=== PATIENT | female | born 1985 | race Caucasian/White ===

== ENCOUNTER 2022-01-15 05:26 | Inpatient (IN) ==
[2022-01-15] MEDS ORDERED: TRANEXAMIC ACID 1,000 MG in SODIUM CHLORIDE 0.9% 100 ML IV PRN (05:38)
[2022-01-15] MEDS ORDERED: FAMOTIDINE 20 MG/2 ML VIAL IV ONE (05:38)
[2022-01-15] MEDS ORDERED: CARBOPROST TROMETHAMINE 250 MCG/ML AMP IM PRN (05:38)
[2022-01-15] MEDS ORDERED: CITRIC ACID/SODIUM CITRATE 30 ML UDCUP PO ONE (05:38)
[2022-01-15] MEDS ORDERED: METHYLERGONOVINE 0.2 MG/1 ML AMP IM PRN (05:38)
[2022-01-15] MEDS ORDERED: OXYTOCIN/LR 20 UNIT/1,000 ML BAG IV ONE ×2 (05:38→12:00)
[2022-01-15] MEDS ORDERED: miSOPROStoL 200 MCG TABLET RECTAL PRN (05:38)
[2022-01-15] MEDS ORDERED: CLINDAMYCIN INJ 900 MG/50 ML PREMIX IV ONE (05:38)
[2022-01-15] MEDS: LACTATED RINGERS 1,000 ML IV SCH ×2 (06:11→17:04)
[2022-01-15 06:26] LABS: Basophils % 0.1 % (0.0-0.8); Hemoglobin 12.3 GM/DL (12.0-16.0); Immature Granulocytes Absolute 0.15 #; Lymphocytes # 1.3 10*3/uL (1.4-4.0); Mean Corpuscular HGB Conc 33.2 GM/DL (32-36); Mean Corpuscular Volume 94.1 FL (87-102); Mean Platelet Volume 11.1 FL (9.6-12.0); Monocytes # 0.5 10*3/uL (0.11-0.8); Monocytes % 6.2 % (1.7-12.7); NRBC # 0.02 10*3/uL; Neutrophils % 74.7 % (38.7-73.9); Platelet Count 126 T/CUMM (130-400); Red Blood Count 3.93 MC/CUMM (3.8-5.5); Red Cell Distribution Width 13.4 % (9.3-17.3); White Blood Count 7.5 T/CUMM (4-12)
[2022-01-15] MEDS ORDERED: BUPIVACAINE SPINAL 0.75% 2 ML AMP SPINAL ONE (06:53)
[2022-01-15] MEDS ORDERED: ONDANSETRON 4 MG/2 ML VIAL ONE (06:53)
[2022-01-15] MEDS ORDERED: buprenorphine HCL 0.3 MG/ML VIAL ONE (06:53)
[2022-01-15] MEDS ORDERED: KETOROLAC 30 MG/1 ML VIAL ONE (07:24)
[2022-01-15] MEDS ORDERED: DEXAMETHASONE 4 MG/1 ML VIAL ONE ×2 (07:24)
[2022-01-15] MEDS ORDERED: ACETAMINOPHEN INJ 1,000 MG/100 ML VIAL IV ONE (07:24)
[2022-01-15] MEDS ORDERED: ePHEDrine 50 MG/ML VIAL ONE (07:31)
[2022-01-15] MEDS ORDERED: LACTATED RINGERS 1,000 ML IV ONE (07:52)
[2022-01-15 08:13] LABS: Bacteria,Urine Occasional /HPF (Few); Mucus,Urine Occasional /LPF (Occasional); RBC,Urine 2 /HPF (0-4); Squamous Epithelial Cell,Urine Occasional /HPF (0-10); Urine Appearance Clear (Clear); Urine Color Yellow (Yellow)
[2022-01-15 08:14] LABS: Bilirubin,Urine Negative (Negative); Blood, Urine Negative (Negative); Glucose,Urine (UA) Negative (Negative); Ketones,Urine 40 mg/dL (Negative); Nitrite,Urine Negative (Negative); Protein,Urine Trace mg/dL (Negative); Urine Urobilinogen 0.2 eU/dL (<2.0)
[2022-01-15 08:15] LABS: Cord Arterial Blood HCO3 21.1 MMOL/L
[2022-01-15 08:18] LABS: Cord Venous Blood HCO3 21.3 MMOL/L; Cord Venous Blood PCO2 39.4 MMHG; Cord Venous Blood PO2 34.4
[2022-01-15] MEDS ORDERED: PHENYLEPHRINE 1 MG/10 ML SYRINGE IV ONE ×2 (08:21)
[2022-01-15 08:22] LABS: Cord Arterial Blood HCO3 20.7 MMOL/L
[2022-01-15 08:24] LABS: Cord Venous Blood HCO3 20.5 MMOL/L; Cord Venous Blood PCO2 43.4 MMHG; Cord Venous Blood PO2 27.5
[2022-01-15] MEDS ORDERED: ACETAMINOPHEN 325 MG TABLET PO PRN (11:45)
[2022-01-15] MEDS ORDERED: BENZOCAINE 20%/MENTHOL 0.5% SPRAY 56 GM CAN TOP PRN (11:45)
[2022-01-15] MEDS ORDERED: oxyCODONE/ACETAMINOPHEN 5-325 MG TABLET PO PRN (11:45)
[2022-01-15] MEDS ORDERED: WITCH HAZEL PADS 100/JAR TOP PRN (11:45)
[2022-01-15] MEDS ORDERED: HYDROCORTISONE 2.5% RECTAL CREAM 30 GM TUBE TOP PRN (11:45)
[2022-01-15] MEDS ORDERED: BISACODYL 10 MG SUPP RECTAL PRN (11:45)
[2022-01-15] MEDS ORDERED: LANOLIN 50% CREAM 0.3 OZ TUBE TOP PRN (11:45)
[2022-01-15] MEDS ORDERED: ONDANSETRON 4 MG/2 ML VIAL IV PRN (11:45)
[2022-01-15] MEDS: KETOROLAC 30 MG/1 ML VIAL IV SCH ×2 (12:06→18:18)
[2022-01-15] MEDS: ACETAMINOPHEN 500 MG TABLET PO SCH ×2 (12:06→18:18)
[2022-01-15] MEDS ORDERED: MEASLES/MUMPS/RUBELLA VACCINE 0.5 ML VIAL SUBCUT ONE (13:00)
[2022-01-15] MEDS ORDERED: DIPH/TET/ACEL PERT BOOSTER VACCINE 0.5 ML VIAL IM ONE (13:00)
[2022-01-15] MEDS ORDERED: RHO(D) IMMUNE GLOBULIN 300 MCG SYRINGE IM ONE (13:00)
[2022-01-15] MEDS: DOCUSATE SODIUM 100 MG CAPSULE PO SCH ×2 (15:42→21:17)
[2022-01-15] MEDS: CLINDAMYCIN INJ 900 MG/50 ML PREMIX IV SCH ×2 (15:42→23:33)
[2022-01-16] MEDS: ACETAMINOPHEN 500 MG TABLET PO SCH (01:15)
[2022-01-16] MEDS: KETOROLAC 30 MG/1 ML VIAL IV SCH (01:15)
[2022-01-16 06:04] LABS: Basophils % 0.2 % (0.0-0.8); Eosinophils % 0.1 % (0.00-10.9); Hematocrit 26.5 VOL% (35.7-47.0); Hemoglobin 8.7 GM/DL (12.0-16.0); Immature Granulocytes % 1.4 %; Immature Granulocytes Absolute 0.15 #; Lymphocytes # 2.5 10*3/uL (1.4-4.0); Lymphocytes % 23.4 % (21.3-54.2); Mean Corpuscular HGB Conc 32.8 GM/DL (32-36); Mean Corpuscular Volume 96.4 FL (87-102); Monocytes # 0.7 10*3/uL (0.11-0.8); Monocytes % 6.3 % (1.7-12.7); Neutrophils % 68.6 % (38.7-73.9); Platelet Count 119 T/CUMM (130-400); Red Blood Count 2.75 MC/CUMM (3.8-5.5); Red Cell Distribution Width 13.4 % (9.3-17.3); White Blood Count 10.9 T/CUMM (4-12)
[2022-01-16] MEDS: DOCUSATE SODIUM 100 MG CAPSULE PO SCH ×2 (09:11→21:42)
[2022-01-16] MEDS: FERROUS SULFATE 325 MG TABLET PO SCH ×3 (09:11→21:41)
[2022-01-16] MEDS: oxyCODONE/ACETAMINOPHEN 5-325 MG TABLET PO PRN ×3 (09:12→21:49)
[2022-01-16] MEDS: IBUPROFEN 800 MG TABLET PO PRN ×2 (11:01→17:17)
[2022-01-17] MEDS: oxyCODONE/ACETAMINOPHEN 5-325 MG TABLET PO PRN ×3 (03:05→16:30)
[2022-01-17 07:31] VITALS: BP 106/60
[2022-01-17] MEDS: FERROUS SULFATE 325 MG TABLET PO SCH ×3 (07:37→16:30)
[2022-01-17] MEDS: DOCUSATE SODIUM 100 MG CAPSULE PO SCH ×2 (07:37→09:00)
[2022-01-17] MEDS: IBUPROFEN 800 MG TABLET PO PRN (07:38)
[2022-01-17] MEDS ORDERED: MAGNESIUM HYDROXIDE SUSP 30 ML UDCUP PO PRN (07:54)
== END 2022-01-17 17:25 | disposition home or self-care (01) | DRG 786 ==
LOC: N.LD 05:26 → N.OB 11:46
PROVIDERS: ADMIT Specialist; ATTEND Specialist
PROC: LDCSECT (ICD-10-PCS; 2022-01-15 07:30)